=== PATIENT | male | born 1960 | race Hispanic/Latino ===

== ENCOUNTER → 2020-12-12 | Outpatient (CLI) | payer OTHER ==
[~2020-12-12] MED LIST: ASPIRIN EC81 MG PO; ATORVASTATIN CA20 MG PO; COVID-19 VACC, MRNA(MODERNA)/PF 100 MCG/0.5 ML VIAL IM ONE; FLUTICASONE PRO16 GM; KOMBIGLYZE XR1 EAC2 PO; LIPITOR20 MG; LISINOPRIL5 MG PO; MULTI-VITAMIN1 EACH PO; PANTOPRAZOLE SO40 MG PO; RANITIDINE HCL150 M1; TRAMADOL HCL100 MG; VITAMIN D2000 UNIT PO; ZOFRAN ODT4 MG
== END | disposition home or self-care (01) ==
LOC: VACCPMC 10:28
DX: Z23 Encounter for immunization (principal); Z20.822 Contact with and (suspected) exposure to COVID-19
CPT/HCPCS: 91301

== ENCOUNTER 2021-01-03 18:33 | Emergency (ER) | payer OTHER ==
[~2021-01-03] VITALS: Ht 165.1 cm; Wt 86.6 kg
[~2021-01-03 18:33] MED LIST changes: -COVID-19 VACC, MRNA(MODERNA)/PF 100 MCG/0.5 ML VIAL IM ONE
== END 2021-01-03 23:11 | disposition home or self-care (01) ==
LOC: ER 19:31
DX: S93.492A Sprain of other ligament of left ankle, initial encounter (principal); S93.602A Unspecified sprain of left foot, initial encounter; X50.1XXA Overexertion from prolonged static or awkward postures, initial encounter
CPT/HCPCS: 99283

== ENCOUNTER → 2021-01-06 | Outpatient (CLI) | payer OTHER | LOC: MRI 07:39 | PROVIDERS: ATTEND Podiatrist Foot Surgery | DX: M25.572 Pain in left ankle and joints of left foot (principal); S96.812A Strain of other specified muscles and tendons at ankle and foot level, left foot, initial encounter ==

== ENCOUNTER → 2021-01-10 | Outpatient (CLI) | payer OTHER | END | disposition home or self-care (01) | LOC: VACCPMC 13:00 | DX: Z23 Encounter for immunization (principal); Z20.822 Contact with and (suspected) exposure to COVID-19 ==

== ENCOUNTER 2021-07-09 12:18 | Emergency (ER) | payer OTHER ==
[~2021-07-09] VITALS: Ht 165.1 cm; Wt 86.2 kg
[2021-07-09] MEDS ORDERED: CRESTOR10 MG PO (12:47)
[2021-07-09] MEDS ORDERED: GLIPIZIDE5 MG PO (12:47)
[2021-07-09] MEDS ORDERED: AUGMENTIN 875-1 EACH PO (13:34)
== END 2021-07-09 13:45 | disposition home or self-care (01) ==
LOC: FSED 12:45
DX: R07.89 Other chest pain (principal); J01.90 Acute sinusitis, unspecified; R05.9 Cough, unspecified; E11.9 Type 2 diabetes mellitus without complications; I10 Essential (primary) hypertension; E78.5 Hyperlipidemia, unspecified
CPT/HCPCS: 71046; 93005; 99283

== ENCOUNTER → 2022-01-08 | Outpatient (CLI) | payer BC ==
[~2022-01-08] MED LIST changes: +AUGMENTIN 875-1 EACH PO; +CRESTOR10 MG PO; +GLIPIZIDE5 MG PO
== END ==
LOC: US 09:01
PROVIDERS: ATTEND Internal Medicine Medical Oncology
DX: D61.818 Other pancytopenia (principal)
CPT/HCPCS: 76700; 76857